=== PATIENT | male | born 1985 | race Caucasian/White ===

== ENCOUNTER 2019-07-17 10:16 | Emergency (ER) | payer OTHER ==
[~2019-07-17] VITALS: Ht 175.2 cm; Wt 90.7 kg
[~2019-07-17 10:16] MED LIST: CHANTRIX0.5 MG PO; NAPROSYN500 MG PO; PENICILLIN-VK500 MG PO; TYLENOL325 M1 PO
[2019-07-17] MEDS ORDERED: NAPROSYN500 MG PO (10:36)
[2019-07-17] MEDS ORDERED: MEDROL DOSEPAK4 MG PO (10:36)
[2019-07-17] MEDS ORDERED: AMOXICILLIN500 M2 PO (10:36)
== END 2019-07-17 10:42 | disposition home or self-care (01) ==
LOC: ED 10:16
DX: G56.23 Lesion of ulnar nerve, bilateral upper limbs (principal); J02.9 Acute pharyngitis, unspecified; Z79.899 Other long term (current) drug therapy; Z79.2 Long term (current) use of antibiotics

== ENCOUNTER → 2020-07-24 | Outpatient (CLI) | payer BC ==
[~2020-07-24] MED LIST changes: +AMOXICILLIN500 M2 PO; +CLARITIN10 MG PO; +MEDROL DOSEPAK4 MG PO; +PRINIVIL10 MG PO
== END | disposition home or self-care (01) ==
LOC: CARD 00:22
PROVIDERS: ATTEND Nurse Practitioner Primary Care
DX: I10 Essential (primary) hypertension (principal); Z82.49 Family history of ischemic heart disease and other diseases of the circulatory system

== ENCOUNTER 2022-03-20 11:39 | Emergency (ER) | payer BC ==
[~2022-03-20] VITALS: Ht 175.2 cm; Wt 106.6 kg
[2022-03-20 12:02] LABS: BASO % 0.5 % (0.0-1.0); EOS # 0.4 10*3/uL (0.0-0.4); EOS % 4.4 % (1.0-4.0); HEMATOCRIT 44.7 % (42.0-52.0); LYMPH # 3.8 10*3/uL (1.3-4.4); LYMPH % 45.9 % (27.0-41.0); MEAN CELL VOLUME 95.9 fl (80.0-94.0); MEAN CORPUSCULAR HGB CONC 34.5 g/dl (33.0-37.0); MEAN PLATELET VOLUME 9.8 fl (9.6-12.3); MONO # 0.4 10*3/uL (0.1-1.0); MONO % 4.7 % (3.0-9.0); NEUT # 3.7 10*3/uL (2.3-7.9); NEUT % 44.4 % (47.0-73.0); PLATELET COUNT AUTOMATED 216 10*3/uL (130-400); RED BLOOD COUNT 4.66 10*6/uL (4.50-5.90); RED CELL DISTRI WIDTH 12.5 % (0-14.5); WHITE BLOOD COUNT 8.3 10*3/uL (4.8-10.8)
[2022-03-20 12:18] LABS: ACT PARTIAL THROMBO TIME 25.4 SECONDS (20.0-32.1); ALKALINE PHOSPHATASE 62 U/L (45-117); BUN 16 mg/dl (7-24); CHLORIDE 108 mmol/L (98-107); CREATININE 1.17 mg/dL (0.70-1.30); POTASSIUM 3.9 mmol/L (3.5-5.1); SGOT/AST 23 IU/L (3-35); SGPT/ALT 28 U/L (12-78); SODIUM 141 mmol/L (136-145); TOTAL PROTEIN 7.4 gm/dL (6.4-8.2)
[2022-03-20 12:20] LABS: LIPASE 148 U/L (73-393)
== END 2022-03-20 14:53 | disposition home or self-care (01) ==
LOC: ED 11:39
PROVIDERS: Emergency Medicine
DX: R07.89 Other chest pain (principal); F41.9 Anxiety disorder, unspecified; Z79.899 Other long term (current) drug therapy

== ENCOUNTER 2024-10-29 08:53 | Emergency (ER) | payer SELFPAY ==
[~2024-10-29] VITALS: Ht 172.7 cm; Wt 77.1 kg
[2024-10-29] MEDS ORDERED: Acetaminophen/Oxycodone 5 MG/325 MG TABLET PO ONE (09:15)
[2024-10-29] MEDS ORDERED: Sulfamethoxazole/Trimethopri 1 TAB TAB PO ONE (09:15)
[2024-10-29] MEDS ORDERED: PERCOCET 5-3251 EACH PO (09:17)
[2024-10-29] MEDS ORDERED: SEPTDS PO (09:17)
== END 2024-10-29 09:45 | disposition home or self-care (01) ==
LOC: ED 08:53
DX: L02.511 Cutaneous abscess of right hand (principal); Z79.899 Other long term (current) drug therapy